=== PATIENT | female | born 1990 | race Caucasian/White ===

== ENCOUNTER 2021-08-21 07:23 | Day surgery (SDC) | payer OTHER ==
[~2021-08-21] VITALS: Ht 172.7 cm; Wt 95.3 kg
[2021-08-21 07:58] VITALS: BP 163/99
[2021-08-21 10:04] VITALS: BP 156/101
[2021-08-21 10:22] LABS: ALBUMIN 5.1 g/dL (3.2-5.0); ALKALINE PHOSPHATASE 96 u/l (38-126); BILIRUBIN, TOTAL 0.9 mg/dL (0.0-1.4); SGOT/AST 54 u/l (14-36)
[2021-08-21 10:24] LABS: HEMATOCRIT 38.9 % (37.0-47.0); HEMOGLOBIN 12.9 g/dl (12.0-16.0); IMMATURE GRANULOCYTES 0.1 % (0.0-5.0); MEAN CELL VOLUME 91.7 fL CALC (80.0-100.0); MEAN CORPUSCULAR HGB 30.4 pG CALC (26.0-32.0); MEAN CORPUSCULAR HGB CONC 33.2 g/dL CAL (32.0-36.0); NEUT# 5.77 thou/uL (2.00-7.15); RED BLOOD COUNT 4.24 mill/uL (4.20-5.60); RED CELL DISTRI WIDTH 12.8 % (11.5-15.5)
[2021-08-21 10:39] LABS: BETA-HCG, QUANT(RESULT NUMBER) <2 mIU/mL
[2021-08-21 14:46] LABS: ANION GAP 14 (6-22 (CALC)); BUN 12 mg/dL (7-17); BUN/CREATININE RATIO 19 (12-20 (CALC)); CARBON DIOXIDE 23 mmol/l (22-30); CHLORIDE 103 mmol/l (95-108); CREATININE 0.6 mg/dL (0.5-1.0); GFR > 60 ML/MIN (>=60 (CALC)); GFR FOR AFR.AMER. > 60 ML/MIN (>=60 (CALC)); POTASSIUM 4.5 mmol/l (3.5-5.1); SODIUM 136 mmol/l (137-146)
[2021-08-21 21:03] VITALS: BP 131/83
[2021-08-22 06:12] LABS: ALKALINE PHOSPHATASE 95 u/l (38-126); ANION GAP 16 (6-22 (CALC)); BILIRUBIN, TOTAL 0.8 mg/dL (0.0-1.4); BUN 12 mg/dL (7-17); BUN/CREATININE RATIO 20 (12-20 (CALC)); CARBON DIOXIDE 21 mmol/l (22-30); CHLORIDE 106 mmol/l (95-108); CREATININE 0.6 mg/dL (0.5-1.0); GFR > 60 ML/MIN (>=60 (CALC)); GFR FOR AFR.AMER. > 60 ML/MIN (>=60 (CALC)); POTASSIUM 3.7 mmol/l (3.5-5.1); SGOT/AST 35 u/l (14-36); SODIUM 139 mmol/l (137-146); TOTAL PROTEIN 8.3 g/dL (6.3-8.2)
[2021-08-22 07:49] VITALS: BP 149/82
[2021-08-22 12:39] VITALS: BP 128/76
[2021-08-22 16:08] VITALS: BP 121/77
== END 2021-08-22 17:08 | disposition home or self-care (01) | DRG 897 ==
LOC: ANR 07:23 → MS2 07:23 → ANR 12:48
PROVIDERS: Nurse Practitioner; ATTEND Anesthesiology
DX: F11.20 Opioid dependence, uncomplicated (principal)
CPT/HCPCS: J2060; J2354